=== PATIENT | female | born 1990 | race Caucasian/White ===

== ENCOUNTER 2019-05-17 20:48 | Emergency (ER) | payer OTHER ==
[~2019-05-17] VITALS: Ht 154.9 cm; Wt 57.3 kg
[2019-05-17] MEDS ORDERED: ACETAMINOPHEN 325 MG TABLET PO ONE (22:15)
[2019-05-17] MEDS ORDERED: AMOXICILLIN TRIHYDRATE 250 MG CAPSULE PO ONE (22:15)
[2019-05-17 23:00] VITALS: BP 114/76
== END 2019-05-17 23:05 | disposition home or self-care (01) ==
LOC: EMS 20:50
DX: O26.892 Other specified pregnancy related conditions, second trimester (principal); H66.91 Otitis media, unspecified, right ear; Z3A.25 25 weeks gestation of pregnancy

== ENCOUNTER 2023-08-17 05:45 | Emergency (ER) | payer OTHER ==
[~2023-08-17] VITALS: Ht 157.5 cm; Wt 54.0 kg
[2023-08-17 05:48] VITALS: TEMP 98.8
[2023-08-17 06:01] VITALS: BP 111/75; PULSE 78; RESP 15
[2023-08-17] MEDS ORDERED: CORTSOL AS (06:07)
[2023-08-17] MEDS ORDERED: AMOX250C4 PO (06:07)
== END 2023-08-17 06:37 | disposition home or self-care (01) ==
LOC: EMS 05:46
DX: H60.92 Unspecified otitis externa, left ear (principal); H66.92 Otitis media, unspecified, left ear
CPT/HCPCS: 99283; Z7502